=== PATIENT | male | born 1950 | race Caucasian/White ===

== ENCOUNTER → 2018-06-06 | Day surgery (SDC) | payer MEDICARE, BC ==
[2018-06-02 11:31] LABS: BASOPHILS # (AUTO) 0.1 (0.0-0.1); BASOPHILS % 0.7 % (0.0-1.0); EOSINOPHILS # (AUTO) 0.1 (0.0-0.4); EOSINOPHILS % 1.8 % (0.0-6.0); HEMATOCRIT 38.5 % (38.2-49.6); HEMOGLOBIN 12.5 g/dL (14.0-18.0); LYMPHOCYTES # (AUTO) 1.1 (1.0-3.2); LYMPHOCYTES % 15.5 % (18.0-39.1); MEAN CORPUSCULAR HEMOGLOBIN 29.1 pg (28-32); MEAN CORPUSCULAR HGB CONC 32.5 g/dL (31-35); MEAN CORPUSCULAR VOLUME 89.5 fL (81-99); MONOCYTES # (AUTO) 0.4 (0.2-0.8); NEUTROPHILS # (AUTO) 5.4 (2.1-6.9); NEUTROPHILS % 75.7 % (38.7-80.0); PLATELET COUNT 479 x10e3/uL (140-360); RED CELL DISTRIBUTION WIDTH 13.9 % (11.7-14.4)
--- NOTE | 2018-06-02 11:33 | Diagnostic Imaging Report ---
Frontal and lateral views of the chest. HISTORY: Preop, right knee surgery COMPARISON: None available. DISCUSSION: Lungs: Low lung volumes result in bibasilar vascular crowding, accentuation of the pulmonary interstitial markings, central pulmonary vasculature, and the cardiac silhouette. Allowing for these limitations, the findings are as follows: 2 subcentimeter calcific densities projecting at the mid left lung, likely incidental calcified granulomas. No evidence of a consolidative pneumonia or pulmonary alveolar edema. Pleura: No pleural effusion or pneumothorax. Heart and mediastinum: The cardiomediastinal silhouette appears unremarkable. Bones: Multiple median sternotomy wires. Mild to moderate multilevel degenerative disc changes. IMPRESSION: No acute radiographic abnormality. Signed by: Dr. Zan Cho D.O., M.M.M. on 06/02/2018 11:30 AM
[~2018-06-06] MED LIST: ASPIR 8181 MG PO; ATENOLOL50 MG PO; AVAPRO150 MG PO; BACITRACIN ZINC 15 GM OINT ONE; BUPIVACAINE 0.25%/EPI 30ML SDV INJ ONE; BUPIVACAINE HCL 0.5% INJ 30 ML VIAL INJ ONE; CEFAZOLIN SOD 2 GM/D5W 50ML 50 ML IV ONE; DEXAMETHASONE SOD PHOS INJ 4 MG/ML VIAL ONE; EPINEPHRINE HCL INJ 1 MG/ML AMP ONE; FENTANYL CITRATE/PF 100MCG/2 ML INJ ONE; HYDROCODON-ACE1 EA12 PO; HYDROCODONE/APAP 5MG-325MG TAB ONE; LIDOCAINE HCL 2% LOCAL INJ 5 ML SDV VIAL INJ ONE; MIDAZOLAM HCL 2 MG/2 ML VIAL ONE; NORVASC5 MG PO; ONDANSETRON HCL INJ 2 MG/ML VIAL ONE; PLAVIX75 MG PO; PROPOFOL IV EMULSION 10 MG/ML 20 ML VIAL ONE; SEVOFLURANE INHAL SOLN 250 ML PEN BTL ONE; VALIUM10 MG PO
--- OUTSIDE RECORDS SUMMARY | 2018-06-06 07:47 | XMS REPORT ---
Author Author [facility] Address Unknown Phone Unavailable Care Team Providers Care Winding Inspector And Tester Name Role Phone TERENCE FELTON Unavailable Unavailable Problems This patient has no known problems. Allergies, Adverse Reactions, Alerts This patient has no known allergies or adverse reactions. Medications This patient has no known medications. Results Test Description Test Time Test Comments Text Results Atomic Results Result Comments CHEST 2 VIEWS 2018-06-02 11:28:00 [place] [address] Patient Name: VIDHYA BARRY MR #: [id number] : 1950 Age/Sex: 67/M Req #: [id number] [facility] Physician: Ordered by: TERENCE FELTON MD Report #: [id number] Location: OR Room/Bed: Procedure: [id number] DX/CHEST 2 VIEWS Exam Date: 06/02/18 Exam Time: 1059 REPORT STATUS: Signed Frontal and lateral views of the chest. HISTORY: Preop, right knee surgery COMPARISON: None available. DISCUSSION: Lungs: Low lung volumes result in bibasilar vascular crowding, accentuation of the pulmonary interstitial markings, central pulmonary vasculature, and the cardiac silhouette. Allowing for these limitations, the findings are as follows: 2 subcentimeter calcific densities projecting at the mid left lung, likely incidental calcified granulomas. No evidence of a consolidative pneumonia or pulmonary alveolar edema. Pleura: No pleural effusion or pneumothorax. Heart and mediastinum: The cardiomediastinal silhouette appears unremarkable. Bones: Multiple median sternotomy wires. Mild to moderate multilevel degenerative disc changes. IMPRESSION: No acute radiographic abnormality. Signed by: Dr. Kimberly Cho D.O., M.M.M. on 06/02/2018 11:30 AM Dictated By: KIMBERLY CHO DO 1130 Transcribed By: ZHANE on 06/02/18 1130 COPY TO: TERENCE FELTON MD
[2018-06-06 13:45] VITALS: BP 133/72
--- NOTE | 2018-06-06 14:21 | Operative Report ---
DATE OF PROCEDURE: June 06, 2018 __ASSISTANT: Emil Gomez PA-C __The patient was brought to the operating room for induction of anesthesia. Throughout this case, my PA's assistance was necessary for retraction of soft tissue and positioning of the extremity. This allows for efficient and technically successful execution of the operation and is considered medically necessary. PREOPERATIVE DIAGNOSIS: Right quadriceps tendon rupture. POSTOPERATIVE DIAGNOSIS: Right quadriceps tendon rupture. PROCEDURE: Repair right quadriceps tendon. INDICATIONS: The patient is a 67-year-old gentleman who has clinic signs and symptoms consistent with a rupture of his right quadriceps tendon. This is approximately 1 month old. He was initially seen and evaluated by another physician. He was scheduled for surgery, but this was canceled because of cardiac concerns. The patient has gone through a cardiac workup which showed a 60% ejection fraction. He ended up in my clinic. We have discussed the findings and options. The added challenges due to the subacute presentation have been discussed. He states he understands and wishes to proceed. DESCRIPTION OF PROCEDURE: The patient was brought to the operating room and placed under general anesthetic. He received prophylactic antibiotics and a regional block in the holding area. His right lower extremity was prepped and draped in a sterile manner. A preoperative time out was performed. The extremity was exsanguinated, and a proximal tourniquet was inflated to 350 mmHg. An incision was made over the right knee. A large subcutaneous hematoma was evacuated. Extensive coagulated blood was encountered. The quadriceps tendon was noted to be completely ruptured. There was a large amount of developing fibrinous scar tissue around the tendon. The tendon was debrided back to healthy tissue. The proximal pole of the patella was also debrided. A curette and a rongeur forceps were used to create a trough of bleeding cancellous bone in the superior aspect of the patella. Three separate drill holes were placed from proximal to distal. A number 2 FiberWire stitch was then woven into each side of the quadriceps tendon. A Mora suture passer was then used to pass the FiberWire stitches through the patella. With the knee held in full extension, I could just barely get the quadriceps tendon to have appropriate opposition to the superior pole of the patella. The FiberWire stitches were secured tightly. They were then tied end to end. The medial and lateral retinaculum was then repaired as well with additional FiberWire stitches. The knee was gently put through flexion. I could only get him up to about 15 or 20 degrees of flexion before I felt extensive tissue. The quadriceps tendon was digitally released as much as possible. The wound was thoroughly irrigated with sterile saline. The skin was closed with subcuticular Vicryl and dashawn. A sterile Aquacel bandage was applied. The patient was placed into a knee immobilizer. He was extubated and transported to the recovery room in stable condition. Job#: [id number]
== END | disposition home or self-care (01) ==
LOC: OR 07:45
PROVIDERS: ATTEND Specialist
DX: S76.111A Strain of right quadriceps muscle, fascia and tendon, initial encounter (principal); W18.2XXA Fall in (into) shower or empty bathtub, initial encounter; Y92.002 Bathroom of unspecified non-institutional (private) residence as the place of occurrence of the external cause; I10 Essential (primary) hypertension; F41.9 Anxiety disorder, unspecified; M19.90 Unspecified osteoarthritis, unspecified site; E78.5 Hyperlipidemia, unspecified; K21.9 Gastro-esophageal reflux disease without esophagitis; M06.9 Rheumatoid arthritis, unspecified; G47.33 Obstructive sleep apnea (adult) (pediatric); I25.10 Atherosclerotic heart disease of native coronary artery without angina pectoris; Z95.1 Presence of aortocoronary bypass graft; Z01.810 Encounter for preprocedural cardiovascular examination; Z01.812 Encounter for preprocedural laboratory examination; Z01.818 Encounter for other preprocedural examination; Z87.891 Personal history of nicotine dependence; Z79.02 Long term (current) use of antithrombotics/antiplatelets; Z79.82 Long term (current) use of aspirin
CPT/HCPCS: 27385; 36415; 71046; 85025; 93005; J0171; J0690; J1100; J2001; J2250; J2405; J2704

== ENCOUNTER → 2018-07-18 | Outpatient (RCR) | payer MEDICARE, BC ==
[~2018-07-18] MED LIST changes: -BACITRACIN ZINC 15 GM OINT ONE; -BUPIVACAINE 0.25%/EPI 30ML SDV INJ ONE; -BUPIVACAINE HCL 0.5% INJ 30 ML VIAL INJ ONE; -CEFAZOLIN SOD 2 GM/D5W 50ML 50 ML IV ONE; -DEXAMETHASONE SOD PHOS INJ 4 MG/ML VIAL ONE; -EPINEPHRINE HCL INJ 1 MG/ML AMP ONE; -FENTANYL CITRATE/PF 100MCG/2 ML INJ ONE; -HYDROCODONE/APAP 5MG-325MG TAB ONE; -LIDOCAINE HCL 2% LOCAL INJ 5 ML SDV VIAL INJ ONE; -MIDAZOLAM HCL 2 MG/2 ML VIAL ONE; -ONDANSETRON HCL INJ 2 MG/ML VIAL ONE; -PROPOFOL IV EMULSION 10 MG/ML 20 ML VIAL ONE; -SEVOFLURANE INHAL SOLN 250 ML PEN BTL ONE
== END ==
LOC: PT 10:43
PROVIDERS: ATTEND Specialist
DX: S76.191D Other specified injury of right quadriceps muscle, fascia and tendon, subsequent encounter (principal); Z47.89 Encounter for other orthopedic aftercare; M25.561 Pain in right knee; M25.661 Stiffness of right knee, not elsewhere classified; M62.81 Muscle weakness (generalized); R26.2 Difficulty in walking, not elsewhere classified
CPT/HCPCS: 97110; 97162; G8978; G8979

== ENCOUNTER 2018-08-17 10:00 | Outpatient (RCR) | payer MEDICARE, BC | END 2018-08-18 | LOC: PT 10:00 | PROVIDERS: ATTEND Specialist | DX: S76.191D Other specified injury of right quadriceps muscle, fascia and tendon, subsequent encounter (principal); Z47.89 Encounter for other orthopedic aftercare; M62.81 Muscle weakness (generalized); M25.561 Pain in right knee; M25.661 Stiffness of right knee, not elsewhere classified; R26.2 Difficulty in walking, not elsewhere classified ==

== ENCOUNTER 2018-09-12 09:56 | Outpatient (RCR) | payer MEDICARE, BC | END 2018-09-15 | LOC: PT 09:56 | PROVIDERS: ATTEND Specialist | DX: S76.191D Other specified injury of right quadriceps muscle, fascia and tendon, subsequent encounter (principal); Z47.89 Encounter for other orthopedic aftercare; M25.561 Pain in right knee; M25.661 Stiffness of right knee, not elsewhere classified; M62.81 Muscle weakness (generalized); R26.2 Difficulty in walking, not elsewhere classified | CPT/HCPCS: 97139 ==

== ENCOUNTER 2018-10-14 09:58 | Outpatient (RCR) | payer MEDICARE, BC | END 2018-10-16 | LOC: PT 09:58 | PROVIDERS: ATTEND Specialist | DX: S76.191D Other specified injury of right quadriceps muscle, fascia and tendon, subsequent encounter (principal); Z47.89 Encounter for other orthopedic aftercare; M62.81 Muscle weakness (generalized); M25.561 Pain in right knee; M25.661 Stiffness of right knee, not elsewhere classified; R26.2 Difficulty in walking, not elsewhere classified | CPT/HCPCS: 97139 ==